=== PATIENT | female | born 1965 ===

== ENCOUNTER 2021-01-31 06:53 | Outpatient (CLI) | payer BC, SELFPAY ==
--- NOTE | 2021-01-31 | ECHO_ITS ---
Patient Info Name: Sandy Cobb Age: 55 years : 1965 Gender: Female Ht: 62 in Wt: 264 lbs BSA: 2.36 m2 HR: 91 bpm BP: 217 / 123 mmHg Technical Quality: Good Exam Date: 01/31/2021 7:24 AM Exam Location: [facility] Patient Status: Outpatient Admit Date: 01/31/2021 Staff Ordering Physician: Kiana, Vaibhav EDGE Chipper Operator: Radha Adams RDCS Attending Provider: Kiana, Vaibhav EDGE Exam Type: CA echo doppler color flow Study Info Indications R01.1 - Cardiac murmur, unspecified Complete two-dimensional, color flow and Doppler transthoracic echocardiogram is performed. Summary 1. Complete two-dimensional, color flow and Doppler transthoracic echocardiogram is performed. 2. Left ventricular chamber dimension is normal. 3. Left ventricular systolic function is normal, estimated at 60-65%. 4. There is mildly increased left ventricular wall thickness. 5. The left ventricular diastolic function is grade II diastolic dysfunction. 6. E/e' 24 is elevated. 7. Left atrial chamber dimension is mildly enlarged. 8. There is mild to moderate mitral valve regurgitation. 9. There is trace tricuspid valve regurgitation. 10. No pulmonary hypertension, estimated pulmonary arterial systolic pressure is 39 mmHg. Left Ventricle E/e' 24 is elevated. Left ventricular chamber dimension is normal. Left ventricular systolic function is normal, estimated at 60-65%. There is mildly increased left ventricular wall thickness. The left ventricular diastolic function is grade II diastolic dysfunction. Right Ventricle Right ventricular chamber dimension is normal. Right ventricular systolic function is normal. Left Atria Left atrial chamber dimension is mildly enlarged. Right Atria Right atrial chamber dimension is normal. Aortic Valve The aortic valve is trileaflet. There is no aortic valve stenosis. There is no aortic valve regurgitation. Pulmonic Valve There is no pulmonic regurgitation. Mitral Valve There is no mitral valve stenosis. There is mild to moderate mitral valve regurgitation. Tricuspid Valve There is trace tricuspid valve regurgitation. No pulmonary hypertension, estimated pulmonary arterial systolic pressure is 39 mmHg. Pericardium/Pleural There is no pericardial effusion. Inferior Vena Cava Dilated inferior vena cava with >50% collapse upon inspiration consistent with normal right atrial pressure, 5 mmHg. Aorta The aortic root size at the sinus of Valsalva is normal. Left Ventricular Outflow Tract Name Value Normal LVOT 2D LVOT Diameter 2.0 cm LVOT Doppler LVOT Peak Gradient 5 mmHg LVOT Mean Gradient 3 mmHg LVOT VTI 23 cm LVOT VTI/AV VTI Ratio 0.7 LVOT Stroke Volume 70 ml LVOT CO 6.5 l/min LVOT CI 2.7 l/min/m2 Pulmonic Valve Name Value
== END 2021-01-31 06:54 | disposition home or self-care (01) ==
PROVIDERS: PCP Student in an Organized Health Care Education/Training Program; Visit Provider Student in an Organized Health Care Education/Training Program
DX: R01.1 Cardiac murmur, unspecified (principal)
CPT/HCPCS: 93306

== ENCOUNTER 2021-05-22 10:15 | Outpatient (CLI) | payer BC, SELFPAY ==
[2021-05-22 10:41] LABS: Basophils Percent Auto 0.4 % (0.2-1.2); Eosinophils Absolute Auto 0.1 K/mm3 (0-0.3); Eosinophils Percent Auto 1.9 % (0-4.4); Hemoglobin 15.6 g/dL (12.0-15.0); Immature Granulocyte Absolute 0.02 K/mm3 (0.00-0.031); Immature Granulocyte Percent A 0.4 % (0-0.5); Lymphocytes Absolute Auto 1.38 K/mm3 (0.9-3.2); Lymphocytes Percent Auto 24.3 % (18.3-44.2); Mean Corpuscular HGB Conc 32.5 g/dl (32-36); Mean Corpuscular Hemoglobin 29.3 pg (26-34); Mean Corpuscular Volume 90.2 fl (80-100); Mean Platelet Volume 10.6 fl (7.4-10.4); Monocytes Absolute Auto 0.4 K/mm3 (0.1-0.6); Monocytes Percent Auto 6.2 % (2.6-8.5); Neutrophils Absolute Auto 3.8 K/mm3 (1.3-6.7); Neutrophils Percent Auto 66.8 % (45.5-73.1); Platelet Count Result 201 k/mm3 (150-375); Red Blood Count 5.32 M/mm3 (4.2-5.4); Red Cell Distribution Width 13.5 % (11.5-14.5); White Blood Count 5.7 K/mm3 (4.5-10.0)
[2021-05-22 10:53] LABS: Hemoglobin A1C 6.5 % (<5.7)
== END 2021-05-22 10:16 | disposition home or self-care (01) ==
PROVIDERS: PCP Student in an Organized Health Care Education/Training Program; Visit Provider Student in an Organized Health Care Education/Training Program
DX: E11.9 Type 2 diabetes mellitus without complications (principal); I10 Essential (primary) hypertension
CPT/HCPCS: 36415; 83036; 85025

== ENCOUNTER 2024-02-22 14:32 | Outpatient (CLI) | payer BC, SELFPAY ==
--- NOTE | ~2024-02-22 | MMUS_ITS ---
EXAMINATION: MM diagnostic maria BI w nithin, US breast LT limited HISTORY: Left breast finding reported on CT imaging TECHNIQUE: Bilateral full field and spot left ML, MLO and CC 3-D tomosynthesis images were performed and synthetic 2-D images were generated. CAD analysis was submitted and interpreted. High resolution upper outer quadrant left breast ultrasound was performed. COMPARISON: 09/02/2023 CT chest, abdomen and pelvis BREAST PARENCHYMAL COMPOSITION: There are scattered areas of fibroglandular density. FINDINGS: MAMMOGRAPHIC FINDINGS: There is asymmetric probable fibroglandular stroma in the upper outer quadrant of the left breast. No focal mass lesion, architectural distortion, malignant calcification, skin thickening or retraction of either breast is detected. ULTRASOUND: Ultrasound imaging of the upper outer quadrant of the left breast reveals a 1.7 x 3.6 mm cyst at 2:00 8 cm from the nipple. No suspicious reproducible mass or shadowing or abnormal vascularity is detected. IMPRESSION: 1. Probable benign asymmetric fibroglandular stroma the upper outer quadrant of the left breast 2. Six-month diagnostic left mammogram and left breast ultrasound follow-up are recommended, unless p rior mammograms dating back 2 or more years demonstrate no significant change. BI-RADS category 3, probably benign findings. Reviewed, dictated and finalized at location A. IMPRESSION: 1. Probable benign asymmetric fibroglandular stroma the upper outer quadrant of the left breast 2. Six-month diagnostic left mammogram and left breast ultrasound follow-up are recommended, unless prior mammograms dating back 2 or more years demonstrate n o significant change. BI-RADS category 3, probably benign findings.
== END 2024-02-22 14:33 ==
PROVIDERS: PCP Family Medicine; Visit Provider Family Medicine
DX: N63.20 Unspecified lump in the left breast, unspecified quadrant (principal); R92.8 Other abnormal and inconclusive findings on diagnostic imaging of breast
CPT/HCPCS: 76642; 77062; 77066; G0279